=== PATIENT | female | born 1930 | race Caucasian/White ===

== ENCOUNTER 2017-08-15 00:02 | Inpatient (IN) | payer MEDICARE ==
[2017-08-15] MEDS ORDERED: PANTOPRAZOLE 40 MG/10 ML VIAL IVP STA (00:13)
--- NOTE | 2017-08-15 00:29 | ED ---
GI Bleed HPI - General Chief complaint: GI Bleed Stated complaint: GI Bleed Time Seen by Provider: 08/15/17 00:07 Source: patient, EMS Mode of arrival: EMS Limitations: physical limitation - History of Present Illness Initial comments: This patient is an 87-year-old woman who is transferred here by ambulance from the shelter, where she was noted to have had a couple of episodes of vomiting tonight with some coffee-ground material. The patient had been admitted here for the same from August 04 to . She had had a femur fracture, with ORIF which was complicated by having GI bleed which was presumed to be from gastritis though she did not have endoscopy at this time, also some acute renal failure, mental status changes due to metabolic encephalopathy, and some anemia. She was having coffee-ground emesis at that time as well. patient had been discharged to the shelter for rehabilitation. The patient is denying abdominal pain. They had not noted any rectal bleeding or dark tarry stools. Patient has not had chest pain or dyspnea. MD complaint: coffee ground emesis -: hour(s) Quality: painless Consistency: intermittent Improves with: none Worsens with: none Context: history of GI bleed Associated Symptoms: denies other symptoms Treatments Prior to Arrival: none - Related Data Home Medications Medication Instructions Recorded Confirmed Furosemide [Lasix] 20 mg PO DAILY 08/04/17 08/04/17 Levothyroxine Sodium [Synthroid] 88 mcg PO DAILY 08/04/17 08/04/17 Liothyronine Sodium [Cytomel] 5 mcg PO DAILY@1200 08/04/17 08/04/17 Metoprolol Succinate [Toprol XL] 25 mg PO DAILY@1800 PRN 08/04/17 08/04/17 Omeprazole 20 mg PO DAILY 08/04/17 08/04/17 Potassium Chloride [Klor-Con 10] 10 meq PO BID 08/04/17 08/04/17 Previous Rx's Medication Instructions Recorded Multivitamins, Thera [Multivitamin 1 each PO DAILY@1200 tab 08/11/17 (formulary)] Pantoprazole [Protonix] 40 mg PO DAILY tablet. 08/11/17 Sennosides-Docusate Sodium 2 each PO HS tab 08/11/17 [Senokot-S] Acetaminophen Tab [Tylenol] 1,000 mg PO Q6HR PRN tab 08/13/17 Cefuroxime Axetil [Ceftin] 500 mg PO BID #10 tab 08/13/17 Folic Acid 1 mg PO DAILY #30 tablet 08/13/17 Haloperidol [Haldol] 0.5 mg PO Q8H PRN #10 tablet 08/13/17 Sertraline [Zoloft] 50 mg PO DAILY tab 08/13/17 Thiamine [Vitamin B-1] 100 mg PO DAILY #30 tablet 08/13/17 Allergies Allergy/AdvReac Type Severity Reaction Status Date / Time No Known Allergies Allergy Verified 08/15/17 00:14 Review of Systems ROS Statement: Those systems with pertinent positive or pertinent negative responses have been documented in the HPI. ROS Other: All systems not noted in ROS Statement are negative. Constitutional: Denies: fever, chills Respiratory: Denies: cough, dyspnea Cardiovascular: Denies: chest pain, palpitations, orthopnea Gastrointestinal: Reports: vomiting, hematemesis. Denies: abdominal pain, nausea, melena, hematochezia Musculoskeletal: Denies: back pain Neurological: Denies: headache Past Medical History Past Medical History: Atrial Fibrillation, Coronary Artery Disease (CAD), Cancer , Deep Vein Thrombosis (DVT), GERD/Reflux, Hyperlipidemia, Myocardial Infarction (CT), Osteoarthritis (OA), Pneumonia, Renal Disease, Thyroid Disorder Additional Past Medical History / Comment(s): MIGRAINES, X2 TIA'S,DVT LT LEG, HIATAL HERNIA(HAD SX), UTI, URINARY INCONT.SKIN CANCER, OSTEOPOROSIS, "CHRONIC BACK PAIN", FALL. PAST FX'S TO SACRUM,T12, Last Myocardial Infarction Date:: 1998 History of Any Multi-Drug Resistant Organisms: None Reported Past Surgical History: Back Surgery, Cardiac Valve Replacement, Coronary Bypass/ CABG, Heart Catheterization With Stent, Joint Replacement Additional Past Surgical History / Comment(s): KYPHOPLASTY,Left Hip replacement IN 2006, CABG-2 VESSEL ?2013, AORITC VALVE REPLACEMENT-TISSUE VALVE.SKIN CA REMOVED,2 CARDIAC STENTS 1998BIL CATARACTS, COLONOSCOPY, AZAEL FILTER,LAP REPAIR ESOPHAGEAL HERNIA Past Anesthesia/Blood Transfusion Reactions: No Reported Reaction Additional Past Anesthesia/Blood Transfusion Reaction / Comment(s): BLOOD TRANSFUSION IN PAST -NO KNOWN REACTION Date of Last Stent Placement:: 1998 Past Psychological History: No Psychological Hx Reported Smoking Status: Former smoker Past Alcohol Use History: None Reported Past Drug Use History: None Reported - Past Family History Mother History Unknown: Yes Father Additional Family Medical History / Comment(s): DEPRESSION, "COMMITTED SUICIDE" General Exam Limitations: physical limitation General appearance: alert, in no apparent distress Head exam: Present: atraumatic, normocephalic Eye exam: Present: normal appearance. Absent: scleral icterus, conjunctival injection Neck exam: Present: normal inspection Respiratory exam: Present: normal lung sounds bilaterally. Absent: respiratory distress, wheezes, rales, rhonchi, stridor Cardiovascular Exam: Present: tachycardia (Rate approximately 104 my exam), irregular rhythm, normal heart sounds. Absent: systolic murmur, diastolic murmur, rubs, gallop GI/Abdominal exam: Present: soft. Absent: distended, tenderness, guarding, rebound, mass Extremities exam: Present: normal inspection, normal capillary refill. Absent: pedal edema, calf tenderness Neurological exam: Present: alert Skin exam: Present: warm, dry, intact, normal color. Absent: rash Course Vital Signs 08/15/17 08/15/17 08/15/17 00:09 00:35 01:16 Temperature 99.0 F Pulse Rate 106 H 141 H 119 H Respiratory 20 19 18 Rate Blood Pressure 126/59 102/52 81/41 O2 Sat by Pulse 83 L 97 95 Oximetry 08/15/17 01:56 Temperature Pulse Rate 135 H Respiratory 18 Rate Blood Pressure 135/59 O2 Sat by Pulse 95 Oximetry Medical Decision Making - Lab Data Result diagrams: 08/15/17 00:15 08/15/17 00:15 Lab Results 08/15/17 08/15/17 08/15/17 Range/Units 00:15 00:15 00:15 WBC 21.7 H (3.8-10.6) k/uL RBC 3.68 L (3.80-5.40) m/uL Hgb 10.3 L (11.4-16.0) gm/dL Hct 33.5 L (34.0-46.0) % MCV 91.1 (80.0-100.0) fL MCH 28.0 (25.0-35.0) pg MCHC 30.8 L (31.0-37.0) g/dL RDW 21.6 H (11.5-15.5) % Plt Count 424 (150-450) k/uL Neutrophils % 88 % Lymphocytes % 7 % Monocytes % 3 % Eosinophils % 1 % Basophils % 0 % Neutrophils # 19.1 H (1.3-7.7) k/uL Lymphocytes # 1.6 (1.0-4.8) k/uL Monocytes # 0.7 (0-1.0) k/uL Eosinophils # 0.2 (0-0.7) k/uL Basophils # 0.1 (0-0.2) k/uL Hypochromasia Marked Anisocytosis Moderate Macrocytosis Slight PT (9.0-12.0) sec INR (<1.2) APTT (22.0-30.0) sec Sodium 141 (137-145) mmol/L Potassium 3.8 (3.5-5.1) mmol/L Chloride 106 (98-107) mmol/L Carbon Dioxide 26 (22-30) mmol/L Anion Gap 9 mmol/L BUN 16 (7-17) mg/dL Creatinine 0.80 (0.52-1.04) mg/dL Est GFR (MDRD) Af Amer >60 (>60 ml/min/1.73 sqM) Est GFR (MDRD) Non-Af >60 (>60 ml/min/1.73 sqM) Glucose 101 H (74-99) mg/dL Plasma Lactic Acid Timothy (0.7-2.0) mmol/L Calcium 8.0 L (8.4-10.2) mg/dL Total Bilirubin 1.1 (0.2-1.3) mg/dL AST 47 H (14-36) U/L ALT 31 (9-52) U/L Alkaline Phosphatase 117 (38-126) U/L Total Creatine Kinase 192 H (30-135) U/L CK-MB (CK-2) 2.0 (0.0-2.4) ng/mL CK-MB (CK-2) Rel Index 1.0 Troponin I 0.030 (0.000-0.034) ng/mL Total Protein 5.5 L (6.3-8.2) g/dL Albumin 2.6 L (3.5-5.0) g/dL Urine Color Urine Appearance (Clear) Urine pH (5.0-8.0) Ur Specific [place] (1.001-1.035) Urine Protein (Negative) Urine Glucose (UA) (Negative) Urine Ketones (Negative) Urine Blood (Negative) Urine Nitrite (Negative) Urine Bilirubin (Negative) Urine Urobilinogen (<2.0) mg/dL Ur Leukocyte Esterase (Negative) Urine RBC (0-5) /hpf Urine WBC (0-5) /hpf Urine WBC Clumps (None) /hpf Ur Squamous Epith Cells (0-4) /hpf Urine Bacteria (None) /hpf Hyaline Casts (0-2) /lpf Urine Mucus (None) /hpf Stool Occult Blood (Negative) Blood Type Blood Type Recheck Antibody Screen Spec Expiration Date 08/15/17 08/15/17 08/15/17 Range/Units 00:15 00:15 00:15 WBC (3.8-10.6) k/uL RBC (3.80-5.40) m/uL Hgb (11.4-16.0) gm/dL Hct (34.0-46.0) % MCV (80.0-100.0) fL MCH (25.0-35.0) pg MCHC (31.0-37.0) g/dL RDW (11.5-15.5) % Plt Count (150-450) k/uL Neutrophils % % Lymphocytes % % Monocytes % % Eosinophils % % Basophils % % Neutrophils # (1.3-7.7) k/uL Lymphocytes # (1.0-4.8) k/uL Monocytes # (0-1.0) k/uL Eosinophils # (0-0.7) k/uL Basophils # (0-0.2) k/uL Hypochromasia Anisocytosis Macrocytosis PT 10.6 (9.0-12.0) sec INR 1.1 (<1.2) APTT 24.3 (22.0-30.0) sec Sodium (137-145) mmol/L Potassium (3.5-5.1) mmol/L Chloride (98-107) mmol/L Carbon Dioxide (22-30) mmol/L Anion Gap mmol/L BUN (7-17) mg/dL Creatinine (0.52-1.04) mg/dL Est GFR (MDRD) Af Amer (>60 ml/min/1.73 sqM) Est GFR (MDRD) Non-Af (>60 ml/min/1.73 sqM) Glucose (74-99) mg/dL Plasma Lactic Acid Timothy 2.1 H* (0.7-2.0) mmol/L Calcium (8.4-10.2) mg/dL Total Bilirubin (0.2-1.3) mg/dL AST (14-36) U/L ALT (9-52) U/L Alkaline Phosphatase (38-126) U/L Total Creatine Kinase (30-135) U/L CK-MB (CK-2) (0.0-2.4) ng/mL CK-MB (CK-2) Rel Index Troponin I (0.000-0.034) ng/mL Total Protein (6.3-8.2) g/dL Albumin (3.5-5.0) g/dL Urine Color Urine Appearance (Clear) Urine pH (5.0-8.0) Ur Specific [place] (1.001-1.035) Urine Protein (Negative) Urine Glucose (UA) (Negative) Urine Ketones (Negative) Urine Blood (Negative) Urine Nitrite (Negative) Urine Bilirubin (Negative) Urine Urobilinogen (<2.0) mg/dL Ur Leukocyte Esterase (Negative) Urine RBC (0-5) /hpf Urine WBC (0-5) /hpf Urine WBC Clumps (None) /hpf Ur Squamous Epith Cells (0-4) /hpf Urine Bacteria (None) /hpf Hyaline Casts (0-2) /lpf Urine Mucus (None) /hpf Stool Occult Blood (Negative) Blood Type O Positive Blood Type Recheck No Antibody Screen NEGATIVE Spec Expiration Date 08/18/2017231408/15/17 08/15/17 Range/Units 00:28 02:19 WBC (3.8-10.6) k/uL RBC (3.80-5.40) m/uL Hgb (11.4-16.0) gm/dL Hct (34.0-46.0) % MCV (80.0-100.0) fL MCH (25.0-35.0) pg MCHC (31.0-37.0) g/dL RDW (11.5-15.5) % Plt Count (150-450) k/uL Neutrophils % % Lymphocytes % % Monocytes % % Eosinophils % % Basophils % % Neutrophils # (1.3-7.7) k/uL Lymphocytes # (1.0-4.8) k/uL Monocytes # (0-1.0) k/uL Eosinophils # (0-0.7) k/uL Basophils # (0-0.2) k/uL Hypochromasia Anisocytosis Macrocytosis PT (9.0-12.0) sec INR (<1.2) APTT (22.0-30.0) sec Sodium (137-145) mmol/L Potassium (3.5-5.1) mmol/L Chloride (98-107) mmol/L Carbon Dioxide (22-30) mmol/L Anion Gap mmol/L BUN (7-17) mg/dL Creatinine (0.52-1.04) mg/dL Est GFR (MDRD) Af Amer (>60 ml/min/1.73 sqM) Est GFR (MDRD) Non-Af (>60 ml/min/1.73 sqM) Glucose (74-99) mg/dL Plasma Lactic Acid Timothy (0.7-2.0) mmol/L Calcium (8.4-10.2) mg/dL Total Bilirubin (0.2-1.3) mg/dL AST (14-36) U/L ALT (9-52) U/L Alkaline Phosphatase (38-126) U/L Total Creatine Kinase (30-135) U/L CK-MB (CK-2) (0.0-2.4) ng/mL CK-MB (CK-2) Rel Index Troponin I (0.000-0.034) ng/mL Total Protein (6.3-8.2) g/dL Albumin (3.5-5.0) g/dL Urine Color Yellow Urine Appearance Cloudy H (Clear) Urine pH 5.5 (5.0-8.0) Ur Specific [place] 1.022 (1.001-1.035) Urine Protein 1+ H (Negative) Urine Glucose (UA) Negative (Negative) Urine Ketones Negative (Negative) Urine Blood Moderate H (Negative) Urine Nitrite Negative (Negative) Urine Bilirubin Negative (Negative) Urine Urobilinogen <2.0 (<2.0) mg/dL Ur Leukocyte Esterase Moderate H (Negative) Urine RBC 20 H (0-5) /hpf Urine WBC 36 H (0-5) /hpf Urine WBC Clumps Few H (None) /hpf Ur Squamous Epith Cells 2 (0-4) /hpf Urine Bacteria Rare H (None) /hpf Hyaline Casts 18 H (0-2) /lpf Urine Mucus Occasional H (None) /hpf Stool Occult Blood Negative (Negative) Blood Type Blood Type Recheck Antibody Screen Spec Expiration Date Disposition Clinical Impression: Upper GI bleed, Pneumonia Disposition: ADMITTED IP TO THIS HOSP Referrals: Flo Fernández MD [Primary Care Provider] - 1-2 days
[2017-08-15 00:32] LABS: Anisocytosis Moderate; Basophils # (A) 0.1 k/uL (0-0.2); Basophils % (A) 0 %; CH 27.2; CHCM 30.2; Eosinophils # (A) 0.2 k/uL (0-0.7); Eosinophils % (A) 1 %; HCT 33.5 % (34.0-46.0); HGB 10.3 gm/dL (11.4-16.0); Hypochromasia Marked; Luc # (Auto) 0.19; Luc % (Auto) 1; Lymphocytes # (A) 1.6 k/uL (1.0-4.8); Lymphocytes % (A) 7 %; MCHC 30.8 g/dL (31.0-37.0); MCV 91.1 fL (80.0-100.0); Macrocytosis Slight; Monocytes # (A) 0.7 k/uL (0-1.0); Monocytes % (A) 3 %; Neutrophils # (A) 19.1 k/uL (1.3-7.7); Neutrophils % (A) 88 %; RBC 3.68 m/uL (3.80-5.40); RDW 21.6 % (11.5-15.5); WBC 21.7 k/uL (3.8-10.6); WBC (Perox) 23.11
[2017-08-15 00:41] LABS: INR 1.1 (<1.2); Partial Thromboplastin Time 24.3 sec (22.0-30.0); Prothrombin Time 10.6 sec (9.0-12.0)
[2017-08-15 00:58] LABS: Anion Gap 9 mmol/L; Carbon Dioxide 26 mmol/L (22-30); Chloride 106 mmol/L (98-107); Glucose 101 mg/dL (74-99); Non-African American GFR(MDRD) >60 (>60 ml/min/1.73 sqM); Sodium 141 mmol/L (137-145); Total Bilirubin 1.1 mg/dL (0.2-1.3); Total Protein 5.5 g/dL (6.3-8.2)
[2017-08-15 01:02] LABS: Blood Urea Nitrogen 16 mg/dL (7-17); Potassium 3.8 mmol/L (3.5-5.1)
[2017-08-15 01:03] LABS: ALT 31 U/L (9-52); AST 47 U/L (14-36); Alkaline Phosphatase 117 U/L (38-126)
[2017-08-15 01:10] LABS: Troponin I 0.03 ng/mL (0.000-0.034)
[2017-08-15] MEDS ORDERED: SODIUM CHLORIDE 0.9% 1,000 ML IV ONE ×2 (01:15→03:12)
[2017-08-15] MEDS ORDERED: ONDANSETRON 4 MG/2 ML VIAL IVP STA (01:16)
--- NOTE | 2017-08-15 02:21 | XR ---
EXAM: XR Chest, 1 View CLINICAL HISTORY: Reason: R/O Pneumonia TECHNIQUE: Frontal view of the chest. COMPARISON: No relevant prior studies available. FINDINGS: Lungs: Bibasilar atelectasis or consolidation. Pleural space: Persistent moderate bilateral pleural effusions. No pneumothorax. Heart: Stable postoperative mediastinum and cardiomediastinal silhouette. Mediastinum: See above. Bones/joints: No acute osseous abnormality. Tubes, lines and devices: Right IJ central venous catheter has been removed. Telemetry leads overlie the patient. IMPRESSION: Persistent moderate bilateral pleural effusions and adjacent atelectasis or consolidation.
[2017-08-15 03:00] LABS: Appearance,Urine Cloudy (Clear); Bacteria,Urine Rare /hpf; Bilirubin,Urine Negative (Negative); Glucose,Urine (UA) Negative (Negative); Ketones,Urine Negative (Negative); Leukocyte Esterase,Urine Moderate (Negative); Mucus,Urine Occasional /hpf; Nitrite,Urine Negative (Negative); PH, Urine 5.5 (5.0-8.0); Particle Count 36668; Protein,Urine 1+ (Negative); RBC,Urine 20 /hpf (0-5); Specific Gravity,Urine 1.022 (1.001-1.035); Squamous Epithelial Cell,Urine 2 /hpf (0-4); UA Billing (MACRO vs. MICRO) MICRO; Urobilinogen,Urine <2.0 mg/dL (<2.0); WBC,Urine 36 /hpf (0-5)
[2017-08-15] MEDS ORDERED: PIPERACILLIN-TAZOBACTAM 3.375 GM in DEXTROSE/WATER 1 50ML.BAG IVPB STA (03:07)
[2017-08-15] MEDS ORDERED: PNEUMONIA PROTOCOL UTILIZED 1 EACH MISC PO PRN (03:07)
[2017-08-15] MEDS ORDERED: LEVOFLOXACIN 750MG-D5W PMX 750 MG in DEXTROSE/WATER 1 150ML.BAG IVPB STA (03:07)
[2017-08-15] MEDS ORDERED: HALOPERIDOL 0.5 MG TAB PO PRN (03:09)
[2017-08-15] MEDS: ACETAMINOPHEN TAB 500 MG TAB PO PRN ×3 (06:01→18:18)
[2017-08-15] MEDS: LEVOTHYROXINE 88 MCG TAB PO SCH (06:01)
[2017-08-15 07:03] VITALS: BMI 31.1
[2017-08-15] MEDS: FOLIC ACID 1 MG TAB PO SCH (07:55)
[2017-08-15] MEDS: THIAMINE 100 MG TAB PO SCH (07:55)
[2017-08-15] MEDS: POTASSIUM CHLORIDE ER 10 MEQ TAB.ER.PRT PO SCH ×2 (08:00→21:21)
[2017-08-15] MEDS: SERTRALINE 50 MG TAB PO SCH (08:00)
[2017-08-15 08:10] LABS: Anisocytosis Moderate; Basophils % (A) 0 %; CH 28.1; CHCM 30.1; Eosinophils % (A) 0 %; HCT 28.1 % (34.0-46.0); HDW 3.23; Hypochromasia Marked; Luc % (Auto) 0; Lymphocytes % (A) 5 %; MCH 28.4 pg (25.0-35.0); MCHC 30.1 g/dL (31.0-37.0); MCV 94.5 fL (80.0-100.0); Macrocytosis Slight; Mean Platelet Volume 7.7; Monocytes # (A) 0.5 k/uL (0-1.0); Monocytes % (A) 2 %; Neutrophils # (A) 19.8 k/uL (1.3-7.7); Neutrophils % (A) 92 %; RBC 2.98 m/uL (3.80-5.40); RDW 22.2 % (11.5-15.5); WBC 21.5 k/uL (3.8-10.6); WBC (Perox) 23.35
[2017-08-15 08:15] LABS: HGB 8.5 gm/dL (11.4-16.0)
[2017-08-15] MEDS: METOPROLOL SUCCINATE (ER) 25 MG TAB.ER.24H PO SCH (08:54)
[2017-08-15] MEDS ORDERED: NON-FORMULARY DRUG (Omeprazole [Omeprazole] 20 MG) PO SCH (09:00)
--- NOTE | 2017-08-15 09:23 | CONS ---
CONSULTATION DATE OF SERVICE: 08/15/17 REQUESTING PHYSICIAN: Dr. Azul. REASON FOR CONSULTATION: Acute upper GI bleed. HISTORY OF PRESENT ILLNESS: The patient is an 87-year-old pleasant white female who was [facility] the prison after having a couple of episodes of coffee-ground emesis yesterday. She apparently underwent hip surgery for a femur fracture on August 04 and was in the hospital and was just discharged to the prison 3 days ago. While in the prison last night she had 2 episodes of coffee-ground emesis. She was brought into the emergency room and she had another episode of large amount of coffee-grounds emesis. This morning she had another episode while in the hospital. The patient denies any abdominal pain. She does not recall having these symptoms in the past. However, as per the nursing staff, she had similar episode in early part of this year, but was treated symptomatically. She does not recall ever having peptic ulcer disease. No recent NSAID use. PAST MEDICAL HISTORY: Significant for hypothyroidism, hypertension, recent hip fracture. Coronary artery disease, atrial fibrillation, history of DVT in the past, GERD and MO, degenerative joint disease. PAST SURGICAL HISTORY: Cardiac valve replacement, back surgery, CABG, cardiac catheterization. MEDICATIONS: Lasix, Synthroid, Cytomel, Toprol, omeprazole, potassium chloride. ALLERGIES: None. SOCIAL HISTORY: No smoking. No alcohol use. FAMILY HISTORY: Father had depression and committed suicide. Mother unknown. REVIEW OF SYSTEMS: Cardiopulmonary: She denies any chest pain, shortness of breath. Genitourinary: No dysuria or hematuria. Musculoskeletal severe right hip pain since the surgery. Neurology unremarkable. Psychiatric unremarkable. ENT vision unremarkable. Constitutional no recent weight loss. No fever, chills, night sweats. Endocrine unremarkable. Hematology unremarkable. PHYSICAL EXAMINATION: She appears comfortable. No apparent distress. VITAL SIGNS: Stable. Blood pressure is 120/63, pulse is 117, temperature 98.7. HEENT examination unremarkable. Conjunctivae pink. Sclerae anicteric. Oral cavity no lesions. Neck no jugular venous distention or lymph node enlargement. The chest was clear to auscultation. HEART: Regular rate and rhythm. ABDOMEN: Soft, nontender, nondistended. Liver and spleen not palpable. Bowel sounds are positive. No organomegaly. Extremities: No pedal edema. Skin no rashes. NEUROLOGIC: Alert and oriented x3. No focal deficits. LAB DATA: At the time of admission to the hospital WBC 21.7, hemoglobin 10.3, platelets normal. PT/INR is within normal limits. This morning hemoglobin is down to 8.5, WBC is 21.5, and platelets are 352. BUN is 16, creatinine 0.8. IMPRESSION: 1. This lady presents to the hospital with a couple of episodes of coffee-ground emesis that happened yesterday while she was at the rehab place where she was admitted 2 days ago after a week hospitalization for right hip fracture for which she underwent surgery. Initial hemoglobin was 10.5, dropped to 8.2 g/dL. Clinically, she remains hemodynamically stable and currently has no active bleeding. However, she did have her last episode of coffee-grounds emesis last night. She does not recall having upper GI bleed in the past. No recent NSAID use. Most likely we are dealing with peptic ulcer disease. 2. Recent hip fracture for which she underwent surgery 10 days ago. RECOMMENDATIONS: 1. Continue with a proton pump inhibitor with Protonix 40 mg daily. 2. Start on clear liquid diet. 3. We will proceed with an upper endoscopy tomorrow. Discussed with the patient risks, benefits and complications and she is agreeable to it. Thank you for this consultation. CATHRYNL / IJN: [id number] /
[2017-08-15] MEDS: DILTIAZEM ORAL 30 MG TAB PO SCH ×3 (11:31→21:21)
[2017-08-15] MEDS: MULTIVITAMINS, THERA 1 EACH TAB PO SCH (11:33)
[2017-08-15] MEDS: LIOTHYRONINE SODIUM 5 MCG TAB PO SCH (11:33)
[2017-08-15] MEDS: PANTOPRAZOLE 40 MG/10 ML VIAL IVP SCH ×2 (12:39→21:21)
--- NOTE | 2017-08-15 12:49 | ECHOF ---
Referral Reason:AF w/RVR MEASUREMENTS -------- HEIGHT: 165.1 cm WEIGHT: 84.8 kg BP: 129/60 IVSd: 0.9 cm (0.6 - 1.1) LVIDd: 2.9 cm (3.9 - 5.3) LVPWd: 1.0 cm (0.6 - 1.1) IVSs: 1.2 cm LVIDs: 2.4 cm LVPWs: 1.0 cm LAESV Index (A-L): 41.86 ml/m Ao Diam: 2.8 cm (2.0 - 3.7) AV Cusp: 1.1 cm (1.5 - 2.6) LA Diam: 3.0 cm (2.7 - 3.8) AV maxP.23 mmHg AV meanP.38 mmHg AR PHT: 382 ms RAP: 5.00 mmHg RVSP: 43.53 mmHg FINDINGS -------- Atrial fibrillation. This was a technically good study. The left ventricular size is normal. There is mild concentric left ventricular hypertrophy. Overa ll left ventricular systolic function is low-normal with, an EF between 50 - 55 %. There is paradox ical/dysynergic septal motion consistent with post-operative status. The right ventricle is normal in size and function. LA is severely dilated >40 ml/m2 The right atrium is normal in size. Aortic valve is trileaflet and is moderately thickened. There is mild aortic regurgitation. There is mild aortic stenosis present. Peak/mean gradient across the Aortic Valve is 20.23mmHg / 12.38mm Hg. The mitral valve leaflets are mildly thickened. Mild mitral regurgitation is present. Moderate tricuspid regurgitation present. There is mild pulmonary hypertension. The right ventric ular systolic pressure, as measured by Doppler, is 43.53mmHg. Pulmonic valve appears structurally normal. The aortic root size is normal. The pericardium is normal. CONCLUSIONS -------- 1. Atrial fibrillation. 2. This was a technically good study. 3. The left ventricular size is normal. 4. There is mild concentric left ventricular hypertrophy. 5. Overall left ventricular systolic function is low-normal with, an EF between 50 - 55 %. 6. There is paradoxical/dysynergic septal motion consistent with post-operative status. 7. The right ventricle is normal in size and function. 8. LA is severely dilated >40 ml/m2 9. The right atrium is normal in size. 10. Aortic valve is trileaflet and is moderately thickened. 11. There is mild aortic regurgitation. 12. There is mild aortic stenosis present. 13. Peak/mean gradient across the Aortic Valve is 20.23mmHg / 12.38mmHg. 14. The mitral valve leaflets are mildly thickened. 15. Mild mitral regurgitation is present. 16. Moderate tricuspid regurgitation present. 17. There is mild pulmonary hypertension. 18. The right ventricular systolic pressure, as measured by Doppler, is 43.53mmHg. 19. Pulmonic valve appears structurally normal. 20. The aortic root size is normal. 21. The pericardium is normal. CROOK OPERATOR: Rajni Simmons RDCS
[2017-08-15] MEDS ORDERED: BISACODYL 10 MG SUPP RECTAL PRN (14:12)
[2017-08-15] MEDS: PIPERACILLIN-TAZOBACTAM 3.375 GM in DEXTROSE/WATER 1 50ML.BAG IVPB SCH ×2 (16:24→23:08)
[2017-08-15] MEDS ORDERED: NA PHOS,M-B/NA PHOS,DI-BA 133 ML ENEMA RECTAL PRN (17:53)
[2017-08-15] MEDS ORDERED: MAGNESIUM HYDROXIDE 2,400 MG/10 ML CUP PO PRN (17:53)
[2017-08-15] MEDS ORDERED: METOPROLOL SUCCINATE (ER) 25 MG TAB.ER.24H PO PRN (18:00)
[2017-08-15] MEDS: HYDROcodone/APAP 5-325MG 1 EACH TAB PO PRN (21:02)
[2017-08-15] MEDS: SENNOSIDES-DOCUSATE SODIUM 1 EACH TAB PO SCH (21:21)
--- NOTE | 2017-08-15 22:16 | HP ---
HISTORY AND PHYSICAL DATE OF ADMISSION: 08/15/17 CHIEF COMPLAINTS: GI bleed. HISTORY OF PRESENT ILLNESS: This 87-year-old woman with a past medical history of multiple medical problems including history of CAD, history of hypertension, hyperlipidemia, history of GI bleed, being followed by Dr. Myers in the outpatient setting was recently admitted with right intertrochanteric fracture and external fixation with long intramedullary hip screw. The patient possibly had multiple complex medical issues including change in mental status, acute metabolic encephalopathy with delirium. Patient was monitored closely. Subsequently patient sent to rehab but however in the rehab the patient was noted to have multiple episodes of vomiting of coffee-ground material and the patient was sent to [facility] and was admitted for further evaluation and treatment. There is no history of fever or rigors. No history of headache , loss of seizures at this time. PAST MEDICAL HISTORY: History of atrial fibrillation, CAD, history of DVT, history of GERD, GI bleed, hyperlipidemia, myocardial infarction, history of migraines, history of back surgery, CAD, CABG, stent. MEDICATIONS: Prior to admission include home medications are: 1. Milk of magnesia p.r.n. 2. [place] 5 mg q.8h p.r.n. 3. Fleet enema p.r.n. 4. Toprol-XL 25 mg. 5. Haldol 0.5 mg every 6 p.r.n. 6. Dulcolax 10 mg daily p.r.n. 7. Zoloft 50 mg p.o. daily. 8. Klor-Con 10 mg p.o. b.i.d. 9. Ceftin 500 mg p.o. b.i.d. 10.Tylenol 1000 mg q.6h p.r.n. 11.Vitamin B1 100 mg p.o. daily. 12.Senokot-S 2 tablets p.o. q.h.s. 13.Protonix 40 mg p.o. daily. 14.Synthroid 88 mcg p.o. daily. 15.Omeprazole 20 mg p.o. daily. 16.Multivitamins 1 p.o. daily. 17.Cytomel 5 mg p.o. daily. 18.Lasix 20 mg q.a.m. 19.Folic acid 1 mg p.o. daily. ALLERGIES: None. FAMILY HISTORY: History of depression. SOCIAL HISTORY: No history of smoking. No history alcohol. REVIEW OF SYSTEMS: ENT: Diminished vision and diminished hearing. Cardiovascular: No angina. Respiratory: As mentioned earlier. GI as mentioned earlier. : No dysuria. NERVOUS SYSTEM: As mentioned earlier. ALLERGY/IMMUNOLOGY: No asthma or hayfever. Musculoskeletal: As mentioned earlier. Hematology/Oncology: As mentioned earlier. Endocrine: Hypothyroidism. Constitutional: As mentioned earlier. Dermatology: Negative. Rheumatology: Negative. Psychiatric: As mentioned earlier. PHYSICAL EXAMINATION: The patient is alert and oriented times three. Pulse is 114, blood pressure is 115/56, respiration 18, temperature 98.8, pulse ox 98% on 2 L. HEENT: Conjunctivae pale. Oral mucosa moist. Neck is no jugular venous distention. No carotid bruit. No lymph node enlargement. Cardiovascular system: S1, S2 muffled. No S3, no S4. RESPIRATORY: Breath sounds diminished in the bases. A few scattered rhonchi. Expiratory wheezing also present. ABDOMEN: Soft, nontender. No mass palpable. Legs no edema. No swelling. Status post surgery. Nervous system: Higher functions as mentioned earlier, moves all 4 limbs, no focal motor or sensory deficits. Lymphatics: No lymph nodes palpable in the neck, axillae or groin. Skin no ulcers, rashes or bleeding. LAB STUDIES: WBC ntd hemoglobin 8.5, otherwise other labs are plasma lactic acid 2.1. Calcium is 8. Creatinine kinase is 192. UA noted. ASSESSMENT: 1. Coffee-ground emesis, possible upper gastrointestinal bleeding. 2. Status post recent right intertrochanteric fracture fixation with long intramedullary hip screw. 3. Increased WBC. 4. History of possible upper gastrointestinal bleeding and acute gastritis. 5. Change in mental status, metabolic encephalopathy, acute delirium recently. 6. Elevated troponin secondary to type 2 non-ST elevation myocardial infarction with demand ischemia recently. 7. History of change in mental status metabolic encephalopathy with acute delirium. 8. Increased WBC. 9. Anemia. 10.History of atrial fibrillation. 11.History of deep vein thrombosis. 12.History of gastroesophageal reflux disease. 13.History of hyperlipidemia. 14.History of myocardial infarction. 15.History of degenerative joint disease. 16.History of hypothyroidism. 17.History of migraine. 18.History of cardiac valve replacement. 19.History of coronary artery disease, coronary artery bypass grafting. 20.History of coronary artery disease, stent. 21.History of aortic valve tissue valve replacement. 22.History of left hip replacement. 23.History of remote history of nicotine dependence. 24.NO CODE, NO CPR, NO VENT. RECOMMENDATIONS AND DISCUSSION: In this 87-year-old woman who presented with multiple complex medical issues, we will monitor the patient closely, continue the current medications, patient was recently discharged to [facility] rehab at this time. The patient is currently having features of upper gastrointestinal bleed. I would recommend to stop antiplatelets and anticoagulations and also use the Protonix twice daily basis. Gastrointestinal evaluation for possible EGD. Continue rest of medications. PT/OT evaluation. Otherwise prognosis guarded because of multiple complex medical issues and further recommendations to follow. MMODL / GHAZALAN: [id number] / JOSE
[2017-08-15] MEDS: ONDANSETRON 4 MG/2 ML VIAL IVP PRN (22:19)
[2017-08-16] MEDS: ACETAMINOPHEN TAB 500 MG TAB PO PRN (03:27)
[2017-08-16] MEDS: LEVOFLOXACIN 500MG-D5W PMX 500 MG in DEXTROSE/WATER 1 100ML.BAG IVPB SCH (05:40)
[2017-08-16 06:25] LABS: Anisocytosis Moderate; Basophils % (A) 0 %; CH 27.7; Eosinophils # (A) 0.2 k/uL (0-0.7); Eosinophils % (A) 1 %; HCT 24.7 % (34.0-46.0); HDW 3.16; HGB 7.4 gm/dL (11.4-16.0); Hypochromasia Marked; Luc # (Auto) 0.13; Luc % (Auto) 1; Lymphocytes # (A) 1.1 k/uL (1.0-4.8); Lymphocytes % (A) 7 %; MCH 28.1 pg (25.0-35.0); MCHC 29.9 g/dL (31.0-37.0); MCV 93.7 fL (80.0-100.0); Macrocytosis Slight; Mean Platelet Volume 7.5; Monocytes # (A) 0.6 k/uL (0-1.0); Monocytes % (A) 4 %; Neutrophils # (A) 14.7 k/uL (1.3-7.7); Neutrophils % (A) 88 %; RBC 2.64 m/uL (3.80-5.40); RDW 22.2 % (11.5-15.5); WBC 16.8 k/uL (3.8-10.6); WBC (Perox) 17.79
[2017-08-16 06:41] LABS: Anion Gap 6 mmol/L; Blood Urea Nitrogen 18 mg/dL (7-17); Calcium 7.4 mg/dL (8.4-10.2); Carbon Dioxide 26 mmol/L (22-30); Chloride 108 mmol/L (98-107); Glucose 85 mg/dL (74-99); Non-African American GFR(MDRD) 59 (>60 ml/min/1.73 sqM); Potassium 3.9 mmol/L (3.5-5.1); Sodium 140 mmol/L (137-145)
[2017-08-16] MEDS ORDERED: PANTOPRAZOLE 40 MG TABLET PO SCH (07:30)
[2017-08-16] MEDS: PIPERACILLIN-TAZOBACTAM 3.375 GM in DEXTROSE/WATER 1 50ML.BAG IVPB SCH ×2 (07:31→15:16)
[2017-08-16] MEDS ORDERED: IV FLUID CONTINUATION 1,000 ML IV ONE (08:02)
--- NOTE | 2017-08-16 08:19 | P.PCN ---
Date of Procedure: 08/16/17 Procedure(s) Performed: BRIEF HISTORY: Patient is a 87-year-old, pleasant, white female, admitted to the hospital with acute upper GI bleed. She recently underwent hip surgery for hip fracture 2 weeks ago and was transferred to a intermediate when she had a few episodes of coffee-ground emesis. She isn't scheduled for an upper endoscopy to evaluate further. PROCEDURE PERFORMED: Esophagogastroduodenoscop with biopsy PREOPERATIVE DIAGNOSIS: Acute upper GI bleed. IV sedation per anesthesia. PROCEDURE: After informed consent was obtained, the patient was brought into the endoscopy unit. IV sedation was administered by Anesthesia under continuous monitoring. Initially the Olympus GIF-140 video endoscope was inserted into the mouth. Esophagus intubated without any difficulty. It was gradually advanced into the stomach and duodenum and carefully examined. The bulb and the second part of the duodenum appeared normal. The scope at this time was withdrawn to the stomach, adequately insufflated with air, and upon careful examination, mucosa of the antrum, body, cardia and the fundus appeared normal. The scope was then withdrawn into the esophagus. The GE junction was located at 37 cm from the incisors. There was severe reflux esophagitis noted in the mid and distal esophagus extending from 30-37 cm from the incisors with mucosal irritation and friability but no active bleeding. Biopsies were done from this area. The rest of the esophagus appeared normal. There were no erosions or ulcerations seen and the patient tolerated the procedure well. IMPRESSION: 1. Severe reflux esophagitis. 2. Small hiatal hernia. RECOMMENDATIONS: The findings of this examination were discussed with the patien. She will be started on a soft diet. Protonix IV will be continued. In the meantime will await the biopsy results.
[2017-08-16] MEDS ORDERED: LIDOCAINE 1% INJ 10MG/ML (20 ML MDV) ONE (08:20)
[2017-08-16] MEDS ORDERED: PROPOFOL 10 MG/ML 20 ML VIAL IV ONE (08:20)
[2017-08-16] MEDS ORDERED: LEVOFLOXACIN 750 MG TAB PO SCH (09:00)
[2017-08-16] MEDS: LEVOTHYROXINE 88 MCG TAB PO SCH (09:38)
[2017-08-16] MEDS: DILTIAZEM ORAL 30 MG TAB PO SCH ×3 (09:38→20:24)
[2017-08-16] MEDS: FOLIC ACID 1 MG TAB PO SCH (09:38)
[2017-08-16] MEDS: FUROSEMIDE 20 MG TAB PO SCH (09:39)
[2017-08-16] MEDS: POTASSIUM CHLORIDE ER 10 MEQ TAB.ER.PRT PO SCH ×2 (09:40→20:24)
[2017-08-16] MEDS: PANTOPRAZOLE 40 MG/10 ML VIAL IVP SCH ×2 (09:40→20:24)
[2017-08-16] MEDS: SERTRALINE 50 MG TAB PO SCH (09:40)
[2017-08-16] MEDS: METOPROLOL SUCCINATE (ER) 25 MG TAB.ER.24H PO SCH (09:40)
[2017-08-16] MEDS: THIAMINE 100 MG TAB PO SCH (09:41)
[2017-08-16] MEDS: LIOTHYRONINE SODIUM 5 MCG TAB PO SCH (11:17)
[2017-08-16] MEDS: MULTIVITAMINS, THERA 1 EACH TAB PO SCH (11:17)
[2017-08-16] MEDS: ONDANSETRON 4 MG/2 ML VIAL IVP PRN (11:23)
[2017-08-16] MEDS: SODIUM CHLORIDE 0.9% 1,000 ML IV SCH (12:24)
[2017-08-16] MEDS: HYDROcodone/APAP 5-325MG 1 EACH TAB PO PRN ×2 (12:24→20:23)
[2017-08-16] MEDS ORDERED: FUROSEMIDE 10 MG/ML 2 ML VIAL IV ONE (16:00)
--- NOTE | 2017-08-16 20:09 | PN ---
PROGRESS NOTE DATE OF SERVICE: 08/16/2017 This 87-year-old woman who was admitted with coffee-grounds emesis, also had recent intertrochanteric fracture of the hip, also. Today, the patient was refusing medications. Patient is mildly confused. Dr. Arango performed an EGD which showed severe reflux esophagitis and small hiatal hernia, which could be the reason for the upper gastrointestinal bleeding. PAST MEDICAL HISTORY: Reviewed. REVIEW OF SYSTEMS: Cardiovascular: No angina or palpitations. Respiration: As mentioned earlier. GI mentioned earlier. : No dysuria. Central nervous system: No focal deficits. MEDICATIONS: Reviewed and include: 1. Tylenol 1000 mg q6h p.r.n. 2. Norris 5 mg q8h. 4. Cardizem 30 mg daily. 5. Folic acid 1 mg daily. 6. Lasix 20 mg q.h.s. 7. Haldol 0.5 mg daily. 8. Levaquin 500 mg IV daily. 9. Synthroid. 10.Cytomel. 11.Milk of magnesia. 12.Toprol-XL. 13.Multivitamin. 14.Zofran. 15.Protonix. 16.Zosyn 3.5 IV q.8h. 17.Senokot-S. 18.Zoloft. 19.Vitamin B1. PHYSICAL EXAM: Patient is alert, oriented x3. Pulse 77, blood pressure 120/70, respiration 17, temperature 97.2, pulse ox 98% 2 L. HEENT: Conjunctivae normal. Oral mucosa moist. Neck is no jugular venous distention. No carotid bruit. No lymph node enlargement. Cardiovascular: S1, S2 muffled. No S3, no S4. RESPIRATORY: Breath sounds diminished in the bases. Scattered rhonchi. No crackles. ABDOMEN: Soft, nontender. No mass palpable. Legs status post surgery. Nervous system: Higher functions as mentioned earlier. Moves all four limbs. No focal deficits. Lymphatics: No lymph nodes palpable in the neck, axillae or groin. SKIN: No ulcer, rash or bleeding. LABS: WBC 16.8, hemoglobin 11.4. ASSESSMENT: 1. Coffee-grounds emesis, upper gastrointestinal bleeding possibly secondary to severe reflux esophagitis and hiatal hernia. 2. Status post recent right intertrochanteric fracture fixation with long intramedullary hip screw. 3. Acute blood-loss anemia from #1. 4. Increased WBC. 5. Change in mental status, metabolic encephalopathy, acute delirium recently. 6. Elevated troponin secondary to type [address]-segment elevation myocardial infarction with demand ischemia recently. 7. History of change in mental status metabolic encephalopathy with acute delirium. 8. Increased WBC. 9. Anemia. 10.History of atrial fibrillation. 11.History of deep vein thrombosis. 12.History of gastroesophageal reflux disease. 13.Hyperlipidemia. 14.History of myocardial infarction. 15.History of degenerative joint disease. 16.History of hypothyroidism. 17.History of migraine. 18.History of cardiac valve replacement. 19.History of coronary artery disease, coronary artery bypass grafting. 20.Coronary artery disease, stent. 21.History of aortic valve replacement. 22.History of left hip replacement. 23.Remote history of nicotine dependence. 24.NO CODE, NO CPR, NO VENT. RECOMMENDATIONS AND DISCUSSION: Recommend to continue current medications, continue symptomatic treatment. Otherwise at this time I recommend repeat labs and continue to monitor. H2 blockers. Antibiotics. I had a detailed discussion with the patient and caregiver. We will address her concerns about continuation of multiple modalities of treatment with Case Management. Prognosis guarded. Further recommendations to follow. MMODL / IJN: [id number] / JOSE
[2017-08-16] MEDS: SENNOSIDES-DOCUSATE SODIUM 1 EACH TAB PO SCH (20:24)
[2017-08-17] MEDS: PIPERACILLIN-TAZOBACTAM 3.375 GM in DEXTROSE/WATER 1 50ML.BAG IVPB SCH ×2 (00:34→08:35)
[2017-08-17] MEDS ORDERED: KETOROLAC 30 MG/ML 1 ML VIAL IVP PRN (01:10)
[2017-08-17] MEDS: HYDROcodone/APAP 5-325MG 1 EACH TAB PO PRN ×2 (02:58→11:29)
[2017-08-17] MEDS: LEVOFLOXACIN 500MG-D5W PMX 500 MG in DEXTROSE/WATER 1 100ML.BAG IVPB SCH (04:46)
[2017-08-17] MEDS: SODIUM CHLORIDE 0.9% 1,000 ML IV SCH (04:49)
[2017-08-17] MEDS: LEVOTHYROXINE 88 MCG TAB PO SCH (06:08)
[2017-08-17 06:26] LABS: Anisocytosis Moderate; Basophils % (A) 0 %; CHCM 29.2; Eosinophils # (A) 0.2 k/uL (0-0.7); Eosinophils % (A) 2 %; HCT 24.8 % (34.0-46.0); HGB 7.2 gm/dL (11.4-16.0); Hypochromasia Marked; Luc # (Auto) 0.13; Luc % (Auto) 1; Lymphocytes % (A) 9 %; MCHC 28.8 g/dL (31.0-37.0); MCV 97.3 fL (80.0-100.0); Macrocytosis Moderate; Mean Platelet Volume 7.3; Monocytes # (A) 0.5 k/uL (0-1.0); Monocytes % (A) 4 %; Neutrophils % (A) 84 %; RBC 2.55 m/uL (3.80-5.40); RDW 22.3 % (11.5-15.5); WBC (Perox) 11.67
[2017-08-17 06:41] LABS: Anion Gap 5 mmol/L; Blood Urea Nitrogen 17 mg/dL (7-17); Calcium 7.4 mg/dL (8.4-10.2); Carbon Dioxide 25 mmol/L (22-30); Chloride 108 mmol/L (98-107); Glucose 90 mg/dL (74-99); Non-African American GFR(MDRD) 52 (>60 ml/min/1.73 sqM); Potassium 3.6 mmol/L (3.5-5.1); Sodium 138 mmol/L (137-145)
[2017-08-17] MEDS: SERTRALINE 50 MG TAB PO SCH (08:34)
[2017-08-17] MEDS: FOLIC ACID 1 MG TAB PO SCH (08:34)
[2017-08-17] MEDS: POTASSIUM CHLORIDE ER 10 MEQ TAB.ER.PRT PO SCH (08:34)
[2017-08-17] MEDS: DILTIAZEM ORAL 30 MG TAB PO SCH (08:35)
[2017-08-17] MEDS: THIAMINE 100 MG TAB PO SCH (08:35)
[2017-08-17] MEDS: FUROSEMIDE 20 MG TAB PO SCH (08:35)
[2017-08-17] MEDS: METOPROLOL SUCCINATE (ER) 25 MG TAB.ER.24H PO SCH (08:35)
[2017-08-17] MEDS: PANTOPRAZOLE 40 MG/10 ML VIAL IVP SCH (08:35)
--- NOTE | 2017-08-17 10:56 | P.PN ---
Subjective Progress Note Date: 08/17/17 Principal diagnosis: Coffee-ground emesis This is an 87-year-old female with history of hypertension, hyperlipidemia, persistent atrial fibrillation, patient had been on Coumadin for anticoagulation which had been discontinued on this recent admission because of question of upper GI bleeding, coronary artery disease with prior bypass surgery in 2013 at which time she underwent and SVG to the first diagonal and SVG to the LAD with aortic valve replacement with bovine tissue valve, recent hip fracture, admitted to the hospital with coffee-ground emesis. She underwent an EGD yesterday by Dr. Barbosa which revealed severe reflux esophagitis with small hiatal hernia. Patient was seen and examined this morning, she denies any further emesis or coffee-ground emesis. No black stools. White blood cell count 12 today, hemoglobin 7.2, potassium 3.6, BUN 17 , creatinine 1.0. At the time of my examination this morning, patients complaint is generalized pain, especially in the buttocks area. I spoke with the patient and her caregiver who are at bedside, she is also requesting to be made hospice care. Blood pressure this morning 102/46, heart rate in the 80s. Objective - Vital Signs Vital signs: Vital Signs Temp 97.9 F 08/17/17 08:00 Pulse 84 08/17/17 08:00 Resp 16 08/17/17 08:00 BP 103/47 08/17/17 08:00 Pulse Ox 96 08/17/17 08:00 Intake & Output 08/16/17 08/17/17 08/17/17 18:59 06:59 18:59 Intake Total 210 100 Balance 210 100 Weight 83.4 kg Intake: IV 100 Intake, IV Titration 50 Amount Piperacillin-Tazobactam 3 50 .375 gm In Dextrose/Water 1 50ml.bag @ 12.5 mls/hr IVPB Q8HR [facility] Rx#: [id number] Oral 60 100 Other: Voiding Method Diaper # Voids 1 2 # Bowel Movements 0 - Exam PHYSICAL EXAMINATION: HEENT: Head is atraumatic, normocephalic. Pupils equal, round. Neck is supple. There is no elevated jugular venous pressure. HEART EXAMINATION: Heart S1 and S2 irregularly irregular a systolic murmur is heard CHEST EXAMINATION: Lungs are clear with diminished air entry to bilateral bases. ABDOMEN: Soft, nontender. Bowel sounds are heard. No organomegaly noted. EXTREMITIES: 2+ peripheral pulses with no evidence of peripheral edema and no calf tenderness noted. NEUROLOGIC patient is awake, alert and oriented -3. . - Labs CBC & Chem 7: 08/17/17 05:57 08/17/17 05:57 Labs: Abnormal Lab Results - Last 24 Hours (Table) 08/17/17 08/17/17 Range/Units 05:57 05:57 WBC 12.0 H (3.8-10.6) k/uL RBC 2.55 L (3.80-5.40) m/uL Hgb 7.2 L (11.4-16.0) gm/dL Hct 24.8 L (34.0-46.0) % MCHC 28.8 L (31.0-37.0) g/dL RDW 22.3 H (11.5-15.5) % Neutrophils # 10.0 H (1.3-7.7) k/uL Chloride 108 H (98-107) mmol/L Calcium 7.4 L (8.4-10.2) mg/dL Microbiology - Last 24 Hours (Table) 08/15/17 04:39 Blood Culture - Preliminary Blood No Growth after 48 hours 08/16/17 03:15 Urine Culture - Preliminary Urine,Catheterized Assessment and Plan Plan: Assessment and plan #1 anemia with evidence of coffee-ground emesis, status post EGD of yesterday which revealed severe reflux esophagitis and small hiatal hernia. #2 chronic persistent atrial fibrillation, patient currently not on anticoagulation because of GI bleeding #3 known history of coronary artery disease with prior bypass surgery and aortic valve replacement 4 years ago #4 hypertension #5 hyperlipidemia #6 status post recent right intertrochanteric fracture #7 hypothyroidism Plan From cardiology's perspective, we'll continue this patient on her current medications. I did speak with the caregiver and the patient this morning, patient is requesting to be made hospice care. DNP note has been reviewed, I agree with a documented findings and plan of care. Patient was seen and examined.
--- NOTE | 2017-08-17 11:22 | CONS ---
CONSULTATION DATE OF CONSULTATION: 08/16/17 CHIEF COMPLAINT: Elevated troponin. HISTORY OF PRESENT ILLNESS: Raisa is an 87-year-old lady with history of complex and multiple medical problems including coronary artery disease, hypertension, dyslipidemia, history of GI bleed, who was admitted to the hospital with vomiting with coffee-grounds emesis. Cardiology had been consulted because of recent history of non ST-segment elevation DE and known underlying coronary artery disease. The patient denied chest pain, difficulty in breathing. PAST MEDICAL HISTORY: Significant for atrial fibrillation, coronary artery disease, DVT, GERD, GI bleed, dyslipidemia, coronary artery disease, bypass surgery and stent. MEDICATIONS: Include [place], Toprol-XL, Haldol, Dulcolax, Zoloft, K-Helene, concept, Tylenol, Senokot, Protonix, Synthroid, omeprazole, multivitamin, Lasix and folic acid. ALLERGIES: There are no known drug allergies. FAMILY HISTORY: Significant for depression. SOCIAL HISTORY: Negative for smoking, EtOH abuse, drug abuse. REVIEW OF SYSTEMS: HEENT is unremarkable. Cardiac as described above. Respiratory as described above. GI as described above. Genitourinary negative. Musculoskeletal significant for arthritis. Psychosocial: Negative: Endocrine negative. Derm: Negative. Constitutional: Negative. Oncological negative. Rest of the system review is not relevant. PHYSICAL EXAM: Patient is comfortable at rest. Afebrile. Vital signs are stable. Chest exam reveals diminished air entry at the bases. Heart exam reveals first and second heart sounds and a systolic murmur at the apex. There is an ejection systolic murmur in the aortic area. ABDOMEN: Soft exam. Exam of the extremities did not reveal any edema. Peripheral pulses are palpable. An echocardiogram shows that LV function is normal. There is mild aortic stenosis and mild pulmonary hypertension. LABS: Showed that hemoglobin is 8.5. EKG is not available. ASSESSMENT: 1. Coffee-grounds emesis, probably secondary to gastrointestinal bleed. 2. Coronary artery disease status post recent mild non ST-segment elevation myocardial infarction. 3. Hypertension. 4. History of diastolic heart failure. MMODL / IJN: [id number] /
[2017-08-17 11:23] VITALS: BP 98/41; PULSE 81; RESP 18; TEMP 97.6
[2017-08-17] MEDS: MULTIVITAMINS, THERA 1 EACH TAB PO SCH (11:29)
[2017-08-17] MEDS: LIOTHYRONINE SODIUM 5 MCG TAB PO SCH (11:29)
--- NOTE | 2017-08-17 11:41 | P.PN ---
Progress Note - Text Progress Note Date: 08/17/17 This is an addendum to the cardiology progress note dictated today, we'll follow this patient now on an as-needed basis only, please don't hesitate to call with any questions. DNP note has been reviewed, I agree with a documented findings and plan of care. Patient was seen and examined.
--- NOTE | 2017-08-17 13:31 | P.PN ---
Subjective Progress Note Date: 08/17/17 Principal diagnosis: S/P Long IT nail for right hip fracture Patient is pleasant 87 yo female seen at bedside this morning. She is s/p IT nail insertion for right hip fracture performed on 08/08/[address] Bellamy. She was transferred to Rehab but was recently readmitted to due vomiting blood. She had an upper GI scope performed on the . She appears to be stable this am. She has some post operative right hip pain as expected but denies any new complaints. She denies right leg numbness, tingling, calf pain, fever, chills, chest pain or shortness of breath. Objective - Vital Signs Vital signs: Vital Signs Temp 97.6 F 08/17/17 11:20 Pulse 81 08/17/17 11:20 Resp 18 08/17/17 11:20 BP 98/41 08/17/17 11:20 Pulse Ox 98 08/17/17 11:20 Intake & Output 08/16/17 08/17/17 08/17/17 18:59 06:59 18:59 Intake Total 210 100 Balance 210 100 Weight 83.4 kg Intake: IV 100 Intake, IV Titration 50 Amount Piperacillin-Tazobactam 3 50 .375 gm In Dextrose/Water 1 50ml.bag @ 12.5 mls/hr IVPB Q8HR [facility] Rx#: [id number] Oral 60 100 Other: Voiding Method Diaper # Voids 1 2 # Bowel Movements 0 - Exam Inspection of right hip reveals beningn surgical wounds with alphonse in place. No active bleeding or drainage. Wound intact. Neurovascular status of lower extremities intact with motor sensation throughout. Calf soft and nontender. 2+ DP pulses present. Less than 2 sec cap refill present. - Constitutional General appearance: Present: no acute distress - Psychiatric Psychiatric: Present: A&O x's 3, appropriate affect, intact judgment & insight - Labs CBC & Chem 7: 08/17/17 05:57 08/17/17 05:57 Labs: Abnormal Lab Results - Last 24 Hours (Table) 08/17/17 08/17/17 Range/Units 05:57 05:57 WBC 12.0 H (3.8-10.6) k/uL RBC 2.55 L (3.80-5.40) m/uL Hgb 7.2 L (11.4-16.0) gm/dL Hct 24.8 L (34.0-46.0) % MCHC 28.8 L (31.0-37.0) g/dL RDW 22.3 H (11.5-15.5) % Neutrophils # 10.0 H (1.3-7.7) k/uL Chloride 108 H (98-107) mmol/L Calcium 7.4 L (8.4-10.2) mg/dL Microbiology - Last 24 Hours (Table) 08/15/17 04:39 Blood Culture - Preliminary Blood No Growth after 48 hours 08/16/17 03:15 Urine Culture - Preliminary Urine,Catheterized Assessment and Plan (1) Closed intertrochanteric fracture of right hip Narrative/Plan: From an orthopedic standopoint she should continue with non weightbearing RLE, pain management, wound care, PT, DVT prophylaxis and medical management. Current Visit: No Status: Acute Priority: Medium Code(s): S72.141A - DISPLACED INTERTROCHANTERIC FRACTURE OF RIGHT FEMUR, INIT SNOMED Code(s): 50366543 Time with Patient: Less than 30
--- NOTE | 2017-08-17 14:31 | P.DS ---
Providers Date of admission: 08/15/17 03:07 Attending physician: Debbie Spicer Consults: 08/15/17 06:50 Consult Physician Routine Consulting Provider: Jono Cuellar Consult Reason/Comments: afib rvr Do you want consulting provider notified?: Yes, Notify in am 08/15/17 06:51 Consult Physician Routine Consulting Provider: Fran Iyer Consult Reason/Comments: hematemesis Do you want consulting provider notified?: Yes, Notify in am 08/16/17 09:35 Consult Physician Routine Consulting Provider: Juancarlos Bellamy Consult Reason/Comments: Recent hip surgery Do you want consulting provider notified?: Yes Primary care physician: Flo Morganqvi Hospital Course: This 87-year-old woman with a past medical history multiple medical problems was admitted with the upper GI bleeding. Patient was monitored closely. Patient had EGD. Hemoglobin is stable. However the patient has multiple comes medical issues. Patient also had a recent fracture and surgery as well. Patient would like to go with the hospice at this time.. The case is discussed at length with patient and family and as well as the caregiver and the his management team. Patient be discharged in a stable condition with guarded prognosis to hospice house. Total time taken 35 minutes. On exam vitals are stable. Cardio S1 and S2 normal. Respirator set a few scattered rhonchi. Abdomen soft nontender. Nervous system no focal deficit. Final diagnosis 1. Coffee-ground emesis possible upper GI bleeding possibly secondary to severe reflux esophagitis and hiatal hernia. 2. Status post recent right intertrochanter fracture fixation with along intermedullary hip screw. 3. Acute blood loss anemia. 5. Change in mental status acute metabolic considerably acute delirium recently. 6. Elevated troponin secondary to type II normal system diminish microinfarction the demand ischemia recently. 7. Increased WBC. 8. History anemia. 9. History atrial fibrillation. 10. History of DVT. 11. History of GERD 12. Hyperlipidemia. 13. History medical fashion. 14. No code no vent. 15. Comfort measures and hospice Plan - Discharge Summary New Discharge Prescriptions: New Atropine Ophth Soln 1% 5Ml [Isopto Atropine 1% 5Ml] 2 drops SL Q4H PRN #1 bottle PRN Reason: Secretions Diltiazem Oral [Cardizem*] 30 mg PO TID #15 tab MORPHINE ORAL ABRAM CONC 20mg/mL [Roxanol Oral Soln Conc 20MG/ML] 10 mg SL Q4H PRN #30 ml PRN Reason: Pain LORazepam [Ativan] 0.5 mg SL Q8H PRN #20 tab PRN Reason: Anxiety Continue Metoprolol Succinate [Toprol XL] 25 mg PO DAILY@1800 PRN PRN Reason: BP >100/50 Furosemide [Lasix] 20 mg PO QAM Acetaminophen Tab [Tylenol] 1,000 mg PO Q6HR PRN tab PRN Reason: Fever And/ Or Pain Haloperidol [Haldol] 0.5 mg PO Q8H PRN #10 tablet PRN Reason: Agitation Sennosides-Docusate Sodium [Senokot-S] 2 tab PO HS Bisacodyl [Dulcolax] 10 mg RECTAL DAILY PRN PRN Reason: Constipation HYDROcodone/APAP 5-325MG [Hanna 5-325] 1 tab PO Q8H PRN #20 tab PRN Reason: Pain Discontinued Omeprazole 20 mg PO DAILY@0600 Liothyronine Sodium [Cytomel] 5 mcg PO DAILY@1200 Levothyroxine Sodium [Synthroid] 88 mcg PO DAILY@0600 Pantoprazole [Protonix] 40 mg PO DAILY tablet. Folic Acid 1 mg PO DAILY #30 tablet Thiamine [Vitamin B-1] 100 mg PO DAILY #30 tablet Cefuroxime Axetil [Ceftin] 500 mg PO BID #10 tab Multivitamins, Thera [Multivitamin (formulary)] 1 tab PO DAILY@1700 Magnesium Hydroxide [Milk of Magnesia] 2,400 mg PO DAILY PRN PRN Reason: Constipation Na Phos,M-B/Na Phos,Di-Ba [Fleet Adult] 133 ml RECTAL ONCE PRN PRN Reason: Constipation Discharge Medication List Furosemide [Lasix] 20 mg PO QAM 08/04/17 [History] Metoprolol Succinate [Toprol XL] 25 mg PO DAILY@1800 PRN 08/04/17 [History] Acetaminophen Tab [Tylenol] 1,000 mg PO Q6HR PRN tab 08/13/17 [Rx] Haloperidol [Haldol] 0.5 mg PO Q8H PRN #10 tablet 08/13/17 [Rx] Bisacodyl [Dulcolax] 10 mg RECTAL DAILY PRN 08/15/17 [History] Sennosides-Docusate Sodium [Senokot-S] 2 tab PO HS 08/15/17 [History] Atropine Ophth Soln 1% 5Ml [Isopto Atropine 1% 5Ml] 2 drops SL Q4H PRN #1 bottle 08/17/17 [Rx] Diltiazem Oral [Cardizem*] 30 mg PO TID #15 tab 08/17/17 [Rx] HYDROcodone/APAP 5-325MG [Hanna 5-325] 1 tab PO Q8H PRN #20 tab 08/17/17 [Rx] LORazepam [Ativan] 0.5 mg SL Q8H PRN #20 tab 08/17/17 [Rx] MORPHINE ORAL ABRAM CONC 20mg/mL [Roxanol Oral Soln Conc 20MG/ML] 10 mg SL Q4H PRN #30 ml 08/17/17 [Rx] Follow up Appointment(s)/Referral(s): Flo Fernández MD [Primary Care Provider] - 1-2 days Activity/Diet/Wound Care/Special Instructions: [facility]
[2017-08-17] MEDS ORDERED: MORPHINE ORAL SOLN 10 MG/5 ML CUP PO PRN (14:41)
[2017-08-18] MEDS ORDERED: LEVOFLOXACIN 250MG-D5W PMX 250 MG in DEXTROSE/WATER 1 50ML.BAG IVPB SCH (06:00)
== END 2017-08-17 16:43 | disposition hospice, inpatient (51) | DRG 391 ==
LOC: EC 00:02 → 6SEL 03:07
PROVIDERS: ADMIT Hospitalist; ATTEND Hospitalist
PROC: 0DB38ZX Excision of Lower Esophagus, Via Natural or Artificial Opening Endoscopic, Diagnostic (ICD-10-PCS; principal; 2017-08-16 08:00)
DX: K21.0 Gastro-esophageal reflux disease with esophagitis (principal); I21.A1 Myocardial infarction type 2; G93.41 Metabolic encephalopathy; K92.0 Hematemesis; I48.1 Persistent atrial fibrillation; I50.32 Chronic diastolic (congestive) heart failure; D62 Acute posthemorrhagic anemia; I11.0 Hypertensive heart disease with heart failure; Z95.1 Presence of aortocoronary bypass graft; Z66 Do not resuscitate; Z51.5 Encounter for palliative care; S72.141D Displaced intertrochanteric fracture of right femur, subsequent encounter for closed fracture with routine healing; E03.9 Hypothyroidism, unspecified; E78.5 Hyperlipidemia, unspecified; I25.10 Atherosclerotic heart disease of native coronary artery without angina pectoris; I25.2 Old myocardial infarction; M19.91 Primary osteoarthritis, unspecified site; K44.9 Diaphragmatic hernia without obstruction or gangrene; G89.29 Other chronic pain; M54.9 Dorsalgia, unspecified; M81.0 Age-related osteoporosis without current pathological fracture; K59.00 Constipation, unspecified; R32 Unspecified urinary incontinence; G43.909 Migraine, unspecified, not intractable, without status migrainosus; Z79.899 Other long term (current) drug therapy; Z86.718 Personal history of other venous thrombosis and embolism; Z95.5 Presence of coronary angioplasty implant and graft; Z96.642 Presence of left artificial hip joint; Z87.891 Personal history of nicotine dependence; Z95.3 Presence of xenogenic heart valve; Z86.73 Personal history of transient ischemic attack (TIA), and cerebral infarction without residual deficits; Z85.828 Personal history of other malignant neoplasm of skin; Z87.440 Personal history of urinary (tract) infections; Z87.01 Personal history of pneumonia (recurrent); Z98.42 Cataract extraction status, left eye; Z98.41 Cataract extraction status, right eye
CPT/HCPCS: 36415; 43239; 51702; 71010; 80048; 80053; 81001; 82272; 82550; 82553; 83605; 84439; 84443; 84481; 84484; 85025; 85610; 85730; 86850; 86900; 86901; 87040; 87086; 88305; 93306; 96361; 96374; 96375; 99285